=== PATIENT | male | born 1955 | race Caucasian/White ===

== ENCOUNTER 2022-01-13 09:09 | Emergency (ER) | payer BC, MEDICARE ==
[2022-01-13 10:14] LABS: ESTIMATED GFR 82 mL/min (>60)
== END 2022-01-13 12:10 | disposition home or self-care (01) ==
LOC: FB.ED 09:09
DX: R42 Dizziness and giddiness (principal); G47.33 Obstructive sleep apnea (adult) (pediatric)
CPT/HCPCS: 36415; 71045; 72050; 80053; 84484; 85025; 85379; 93005; 99284